=== PATIENT | female | born 1965 | race Caucasian/White ===

== ENCOUNTER 2016-05-23 19:03 | Inpatient (IN) | payer OTHER ==
[2016-05-23 20:14] LABS: BASOPHIL 0.3 % (0-2); EOSINOPHIL 0.1 % (0-5); HCT 30.9 % (37.0-47.0); HGB 9.4 g/dl (12.5-16.0); LYMPHOCYTE 1.5 % (15-48); MCH 22.5 pg (25.0-31.0); MCHC 30.4 g/dL (32.0-36.0); MCV 73.9 fL (78.0-100.0); MONOCYTE 6.4 % (0-12); NEUTROPHIL 91.7 % (41-80); PLT 420 K/uL (150-400); RBC 4.18 M/uL (4.20-5.40); RDW 20.4 % (11.5-14.0)
[2016-05-23 20:15] LABS: WBC 10.8 K/uL (4.0-10.5)
[2016-05-23 20:23] LABS: INR 3.2 (0.9-1.2)
[2016-05-23 20:34] LABS: ALBUMIN 4.1 g/dL (3.5-5.0); BILIRUBIN - TOTAL 2.8 mg/dL (0.1-1.0); CKMB 2.39 ng/mL (0.97-4.94); CREATININE 2.5 mg/dL (0.5-1.0); GLOBULIN (CALCULATION) 3.4 g/dL (2.2-4.2); LACTIC ACID 1.3 mmol/L (0.5-2.2); MAGNESIUM 2.27 mg/dL (1.40-2.10); TOTAL PROTEIN 7.5 g/dL (6.4-8.3); TROPONIN T 0.034 ng/mL
[2016-05-23 21:10] LABS: BILIRUBIN NEGATIVE (NEGATIVE); BLOOD NEGATIVE Ery/uL (NEGATIVE); CLARITY CLEAR (CLEAR); COLOR YELLOW (YELLOW); GLUCOSE (U) NORMAL (NORMAL); KETONE (U) NEGATIVE (NEGATIVE); LEUKOCYTES NEGATIVE Leu/uL (NEGATIVE); NITRITE NEGATIVE (NEGATIVE); PROTEIN NEGATIVE (NEGATIVE); UROBILINOGEN 0.2 mg/dL (0.2-1.0)
[2016-05-24 05:08] LABS: BASOPHIL 0.1 % (0-2); EOSINOPHIL 0 % (0-5); HCT 29.3 % (37.0-47.0); HGB 8.9 g/dl (12.5-16.0); LYMPHOCYTE 1.7 % (15-48); MCHC 30.4 g/dL (32.0-36.0); MCV 72.5 fL (78.0-100.0); MONOCYTE 7.6 % (0-12); MPV 10.7 fL (6.0-9.5); NEUTROPHIL 90.6 % (41-80); PLT 398 K/uL (150-400); RBC 4.04 M/uL (4.20-5.40); RDW 20.4 % (11.5-14.0)
[2016-05-24 05:11] LABS: WBC 19.5 K/uL (4.0-10.5)
[2016-05-24 05:19] LABS: INR 3.09 (0.9-1.2); PROTHROMBIN TIME 31.1 SECONDS (11.7-14.0)
[2016-05-24 05:26] LABS: ALBUMIN 3.9 g/dL (3.5-5.0); CREATININE 2.2 mg/dL (0.5-1.0); GLOBULIN (CALCULATION) 3.2 g/dL (2.2-4.2); MAGNESIUM 2.03 mg/dL (1.40-2.10); PHOSPHORUS 4.9 mg/dL (2.7-4.5); POTASSIUM 3.6 mmol/L (3.5-5.1); TOTAL PROTEIN 7.1 g/dL (6.4-8.3)
[2016-05-24 05:27] LABS: CKMB 2.67 ng/mL (0.97-4.94); TROPONIN T 0.041 ng/mL
[2016-05-24 11:33] LABS: AMYLASE 84 U/L (28-100); CKMB 2.18 ng/mL (0.97-4.94); LIPASE 39 U/L (13-60); TROPONIN T 0.04 ng/mL
[2016-05-25 04:36] LABS: HCT 29.3 % (37.0-47.0); HGB 8.7 g/dl (12.5-16.0); MCHC 29.7 g/dL (32.0-36.0); MPV 11.3 fL (6.0-9.5); RBC 3.96 M/uL (4.20-5.40); RDW 20.5 % (11.5-14.0); WBC 12.2 K/uL (4.0-10.5)
[2016-05-25 04:45] LABS: INR 4.6 (0.9-1.2); PROTHROMBIN TIME 42.6 SECONDS (11.7-14.0)
[2016-05-25 04:55] LABS: ALBUMIN 3.9 g/dL (3.5-5.0); BILIRUBIN - DIRECT 2.4 mg/dL (0.0-0.2); BILIRUBIN - TOTAL 3.3 mg/dL (0.1-1.0); CREATININE 2.9 mg/dL (0.5-1.0); GLOBULIN (CALCULATION) 2.9 g/dL (2.2-4.2); MAGNESIUM 2.11 mg/dL (1.40-2.10); POTASSIUM 4.2 mmol/L (3.5-5.1); TOTAL PROTEIN 6.8 g/dL (6.4-8.3)
[2016-05-26 04:59] LABS: HCT 28.6 % (37.0-47.0); HGB 8.6 g/dl (12.5-16.0); MCH 21.9 pg (25.0-31.0); MCHC 30.1 g/dL (32.0-36.0); MPV 10.8 fL (6.0-9.5); RBC 3.92 M/uL (4.20-5.40); RDW 20.5 % (11.5-14.0); WBC 13.3 K/uL (4.0-10.5)
[2016-05-26 05:09] LABS: INR 3.39 (0.9-1.2); PROTHROMBIN TIME 33.5 SECONDS (11.7-14.0)
[2016-05-26 05:32] LABS: MAGNESIUM 2.19 mg/dL (1.40-2.10); POTASSIUM 4.4 mmol/L (3.5-5.1)
[2016-05-26] MEDS ORDERED: SYNTHROID25 MCG PO (15:51)
[2016-05-26] MEDS ORDERED: LIPITOR40 MG PO (15:51)
[2016-05-26] MEDS ORDERED: CLARITIN10 MG PO (15:54)
[2016-05-26] MEDS ORDERED: FENOFIBRATE145 MG PO (15:54)
[2016-05-26] MEDS ORDERED: NEURONTIN100 MG PO (15:55)
[2016-05-26] MEDS ORDERED: DEMADEX100 MG PO (15:55)
[2016-05-26] MEDS ORDERED: VIORELE 28 DAY1 EACH PO (15:56)
[2016-05-26] MEDS ORDERED: COUMADIN2.5 MG PO (15:56)
[2016-05-26] MEDS ORDERED: PEPCID AC20 MG PO (15:56)
[2016-05-26] MEDS ORDERED: ALDACTONE25 MG PO (15:57)
[2016-05-26] MEDS ORDERED: TOPROL XL 50 MG50 MG PO (15:57)
[2016-05-26] MEDS ORDERED: NOVOLOG VI100 UNIT/1 SQ (15:58)
== END 2016-05-26 15:52 | disposition home or self-care (01) | DRG 919 ==
LOC: FER 19:03 → FICU 22:42
PROVIDERS: Emergency Medicine; Internal Medicine Nephrology; ADMIT Internal Medicine
DX: T85.614A Breakdown (mechanical) of insulin pump, initial encounter (principal); I50.21 Acute systolic (congestive) heart failure; T68.XXXA Hypothermia, initial encounter; I85.00 Esophageal varices without bleeding; E11.22 Type 2 diabetes mellitus with diabetic chronic kidney disease; N17.9 Acute kidney failure, unspecified; E11.40 Type 2 diabetes mellitus with diabetic neuropathy, unspecified; N18.3 Chronic kidney disease, stage 3 (moderate); K26.9 Duodenal ulcer, unspecified as acute or chronic, without hemorrhage or perforation; I13.0 Hypertensive heart and chronic kidney disease with heart failure and stage 1 through stage 4 chronic kidney disease, or unspecified chronic kidney disease; E11.649 Type 2 diabetes mellitus with hypoglycemia without coma; E87.6 Hypokalemia; E80.6 Other disorders of bilirubin metabolism; E78.5 Hyperlipidemia, unspecified; E03.9 Hypothyroidism, unspecified; J44.9 Chronic obstructive pulmonary disease, unspecified; K21.9 Gastro-esophageal reflux disease without esophagitis; M54.9 Dorsalgia, unspecified; D64.9 Anemia, unspecified; R74.0 Nonspecific elevation of levels of transaminase and lactic acid dehydrogenase [LDH]; Z96.41 Presence of insulin pump (external) (internal); G89.29 Other chronic pain; Z95.0 Presence of cardiac pacemaker; Z95.2 Presence of prosthetic heart valve; Z79.01 Long term (current) use of anticoagulants; Z83.3 Family history of diabetes mellitus; Z82.49 Family history of ischemic heart disease and other diseases of the circulatory system; Z80.41 Family history of malignant neoplasm of ovary; Z83.6 Family history of other diseases of the respiratory system; I25.2 Old myocardial infarction
CPT/HCPCS: 36415; 71010; 71020; 76705; 80048; 80053; 80076; 81003; 82140; 82150; 82550; 82553; 82962; 83605; 83690; 83735; 83874; 83880; 84100; 84443; 84484; 85025; 85610; 85730; 93005; 96372; J0692; J1756; J1815; J1940; J2405

== ENCOUNTER 2016-08-22 19:15 | Emergency (ER) | payer OTHER ==
[~2016-08-22 19:15] MED LIST: ALDACTONE25 MG PO; CLARITIN10 MG PO; COUMADIN2.5 MG PO; DEMADEX100 MG PO; FENOFIBRATE145 MG PO; LIPITOR40 MG PO; NEURONTIN100 MG PO; NOVOLOG VI100 UNIT/1 SQ; PEPCID AC20 MG PO; SYNTHROID25 MCG PO; TOPROL XL 50 MG50 MG PO; VIORELE 28 DAY1 EACH PO
== END 2016-08-22 21:23 | disposition home or self-care (01) ==
LOC: FER 19:15
DX: I83.892 Varicose veins of left lower extremity with other complications (principal); E03.9 Hypothyroidism, unspecified; Z79.899 Other long term (current) drug therapy; Z95.0 Presence of cardiac pacemaker